=== PATIENT | female | born 1950 | race Two or more races ===

== ENCOUNTER 2021-07-28 10:30 | Outpatient (CLI) | payer MEDICARE ==
[2021-07-28 12:35] LABS: BASOPHILS % (AUTO) 0.6 % (0.0-2.0); EOSINOPHILS % (AUTO) 3.1 % (0.0-6.0); HEMATOCRIT 41 % (33-45); LYMPHOCYTES # (AUTO) 1.5 K/uL (0.8-4.8); MEAN CORPUSCULAR HGB CONC 34 g/dl (31.0-36.0); MEAN CORPUSCULAR VOLUME 94 fL (82-100); MONOCYTES # (AUTO) 0.3 K/uL (0.1-1.30); MONOCYTES % (AUTO) 5.4 % (2.0-12.0); NEUTROPHILS # (AUTO) 3.5 K/uL (1.8-8.9); NEUTROPHILS % (AUTO) 62.9 % (43.0-81.0); PLATELET COUNT (AUTO) 206 K/uL (150-450); RED BLOOD CELL COUNT(AUTO) 4.39 MIL/uL (4.0-5.2); WHITE BLOOD COUNT (AUTO) 5.5 K/uL (4.3-11.0)
[2021-07-28 12:41] LABS: PREALBUMIN 24.9 MG/DL (18.0-35.7)
[2021-07-28 12:43] LABS: C-REACTIVE PROTEIN < 0.2 mg/dL (0.0-0.9)
== END 2021-07-28 23:59 | disposition home or self-care (01) ==
LOC: WOU 10:30
PROVIDERS: ATTEND Specialist
DX: T86.838 Other complications of bone graft (principal); D32.9 Benign neoplasm of meninges, unspecified; R05.9 Cough, unspecified
CPT/HCPCS: 36415; 71045; 84134; 85025; 85652; 86140; 87070; 87075; 87077; 87186; A6209; G0463

== ENCOUNTER 2021-08-04 10:45 | Outpatient (CLI) | payer MEDICARE | END 2021-08-04 23:59 | disposition home or self-care (01) | LOC: WOU 10:45 | PROVIDERS: ATTEND Specialist | DX: T86.838 Other complications of bone graft (principal); T86.821 Skin graft (allograft) (autograft) failure; D32.9 Benign neoplasm of meninges, unspecified | CPT/HCPCS: A6209; G0463 ==

== ENCOUNTER 2021-08-11 10:33 | Outpatient (CLI) | payer MEDICARE | END 2021-08-11 23:59 | disposition home or self-care (01) | LOC: WOU 10:33 | PROVIDERS: ATTEND Specialist | DX: T86.838 Other complications of bone graft (principal); D32.9 Benign neoplasm of meninges, unspecified; T86.821 Skin graft (allograft) (autograft) failure | CPT/HCPCS: A6209; G0463 ==

== ENCOUNTER 2021-08-25 10:50 | Outpatient (CLI) | payer MEDICARE | END 2021-08-25 23:59 | disposition home or self-care (01) | LOC: WOU 10:50 | PROVIDERS: ATTEND Specialist | DX: T86.838 Other complications of bone graft (principal); T86.821 Skin graft (allograft) (autograft) failure; D32.9 Benign neoplasm of meninges, unspecified | CPT/HCPCS: G0463 ==

== ENCOUNTER 2021-09-01 10:20 | Outpatient (CLI) | payer MEDICARE | END 2021-09-01 23:59 | disposition home or self-care (01) | LOC: WOU 10:20 | PROVIDERS: ATTEND Specialist | DX: T86.821 Skin graft (allograft) (autograft) failure (principal); T86.838 Other complications of bone graft; D32.9 Benign neoplasm of meninges, unspecified | CPT/HCPCS: G0463 ==

== ENCOUNTER 2021-09-08 09:50 | Outpatient (CLI) | payer MEDICARE | END 2021-09-08 23:59 | disposition home or self-care (01) | LOC: WOU 09:50 | PROVIDERS: ATTEND Specialist | DX: T86.821 Skin graft (allograft) (autograft) failure (principal); T86.838 Other complications of bone graft; D32.9 Benign neoplasm of meninges, unspecified | CPT/HCPCS: G0463 ==

== ENCOUNTER 2021-09-15 09:50 | Outpatient (CLI) | payer MEDICARE | END 2021-09-15 23:59 | disposition home or self-care (01) | LOC: WOU 09:50 | PROVIDERS: ATTEND Specialist | DX: T86.821 Skin graft (allograft) (autograft) failure (principal); T86.838 Other complications of bone graft; D32.9 Benign neoplasm of meninges, unspecified | CPT/HCPCS: G0463 ==